=== PATIENT | female | born 1970 | race Caucasian/White ===

== ENCOUNTER 2021-04-06 15:53 | Emergency (ER) | payer OTHER ==
[~2021-04-06] VITALS: Ht 162.6 cm; Wt 68.0 kg
[2021-04-06 16:02] VITALS: BP 138/72
== END 2021-04-06 22:40 | disposition left against medical advice (07) ==
LOC: ER 15:53 → EDBD 15:53 → ER 22:40
DX: M25.532 Pain in left wrist (principal); V43.92XA Unspecified car occupant injured in collision with other type car in traffic accident, initial encounter; Y93.89 Activity, other specified; Y92.410 Unspecified street and highway as the place of occurrence of the external cause; Y99.8 Other external cause status